=== PATIENT | male | born 1955 | race Native Hawaiian/Other Pacific Islander ===

== ENCOUNTER 2016-10-27 05:50 | Day surgery (SDC) | payer MEDICARE, MEDICAID ==
[~2016-10-27] VITALS: Ht 160 cm; Wt 63.2 kg
[~2016-10-27 05:50] MED LIST: ACET-784 PO; ACET-784 PR; ASPI81 PO; BISA10S PR; CARB15OT AU; DEXAMETHASONE SOD PHOS 4 MG/ML VIAL IVP ONE; FentaNYL CITRATE-PF 100 MCG/2 ML VIAL IVP ONE; GLYCOPYRROLATE 0.2 MG/ML VIAL IM ONE; GUAIFDM PO; KETOROLAC TROMETHAMINE 60 MG/2 ML VIAL IM ONE; LOPE2 PO; LORA10TA7 PO; MYLANTA SUSPENSION PO; ONDANSETRON HCL 4 MG/2 ML VIAL IVP ONE; OSCD250 PO; PHEN118S38 PO; PRED5 PO; PROPOFOL 1% 20 ML VIAL IVP ONE; SUCCINYLCHOLINE CHLORIDE 20 MG/ML 10 ML VIAL IVP ONE; SULF500T60 PO; WHEA1POW2 PO
[2016-10-27] MEDS ORDERED: RINGERS SOLUTION,LACTATED 1,000 ML IV ONE ×2 (06:11→07:00)
[2016-10-27 06:56] LABS: BASOPHILS % (AUTO) 0.6 % (0.0-2.0); EOSINOPHILS % (AUTO) 10.7 % (1.0-6.0); HEMATOCRIT 41.6 % (41-53); HEMOGLOBIN 14.5 g/dL (13.5-17.5); MEAN CORPUSCULAR HEMOGLOBIN 33.1 pg (26.0-34.0); MEAN CORPUSCULAR HGB CONC 34.9 G/dL (31.0-37.0); MEAN CORPUSCULAR VOLUME 95 fL (80-100); MONOCYTES # (AUTO) 0.8 K/uL (0.1-1.0); MONOCYTES % (AUTO) 10.1 % (2.0-9.0); NEUTROPHILS # (AUTO) 4.5 K/uL (1.8-7.7); NEUTROPHILS % (AUTO) 54.6 % (40.0-70.0); PLATELET COUNT (AUTO) 161 K/uL (150-450); RED BLOOD CELL COUNT(AUTO) 4.38 MIL/uL (4.50-5.90); RED CELL DISTRIBUTION WIDTH 14.2 % (11.5-14.5); WHITE BLOOD COUNT (AUTO) 8.3 K/uL (4.5-11.0)
[2016-10-27 07:21] LABS: ORIG DRAW (USER) PTCARESTAF
[2016-10-27] MEDS ORDERED: AMPICILLIN SODIUM 1 GM/VIAL ONE ×2 (07:27→07:41)
[2016-10-27 07:40] LABS: ANION GAP 10 mmol/L (8-16); CALCIUM, TOTAL 8.9 mg/dL (8.8-10.5); CARBON DIOXIDE 27 mmol/L (22-29); CHLORIDE 106 mmol/L (98-107); CREATININE 0.77 mg/dL (0.60-1.30); GLOMERULAR FILTR. RATE CALC > 60 mL/min (>60); POTASSIUM 4.3 mmol/L (3.5-5.1); SODIUM SERUM 143 mmol/L (136-145); UREA NITROGEN, BLOOD 19 mg/dL (7-18)
[2016-10-27 07:48] LABS: ALANINE AMINOTRANSFERASE 29 U/L (12-78); ALBUMIN 3.5 g/dL (3.4-5.0); ASPARTATE AMINOTRANSFERASE 14 U/L (15-37); BILIRUBIN,TOTAL 0.4 mg/dL (0.1-1.0); PROTHROMBIN TIME 10.7 SEC (9.4-11.6); TOTAL PROTEIN, SERUM 6.7 g/dL (6.4-8.2)
== END 2016-10-27 11:20 | disposition home or self-care (01) ==
LOC: SURGERY 05:50
PROVIDERS: ATTEND Dentist General Practice
DX: K05.30 Chronic periodontitis, unspecified (principal); K02.9 Dental caries, unspecified; K51.90 Ulcerative colitis, unspecified, without complications; J31.0 Chronic rhinitis; K21.9 Gastro-esophageal reflux disease without esophagitis; E55.9 Vitamin D deficiency, unspecified; F79 Unspecified intellectual disabilities; Z79.01 Long term (current) use of anticoagulants; Z98.49 Cataract extraction status, unspecified eye; Z86.69 Personal history of other diseases of the nervous system and sense organs
CPT/HCPCS: 36415; 41899; 71010; 80053; 85025; 85610; 85730; 93005; J0290; J0330; J1100; J1885; J2405; J2704; J3010; J3490; J7120